=== PATIENT | female | born 1990 | race Caucasian/White ===

== ENCOUNTER 2018-05-28 19:51 | Emergency (ER) | payer SELFPAY ==
[~2018-05-28] VITALS: Ht 154.9 cm; Wt 59.0 kg
[~2018-05-28 19:51] MED LIST: ACEBUTCAFT PO; ALBU90I INH; ALBU90OI INH; ALBU90OI61 INH; ALPR.25 PO; AMIT50 PO; AMOCLA875 PO; AMOX500 PO; AMPI500 PO; ARIP10; ARIP20 PO; AZIT250 PO; Amoxicillin500 MG PO; BENADRYL25 MG PO; BENTYL20 MG PO; BENZ100A PO; BETH10 PO; BUSP15; BUSP15 PO; CARB200 PO; CEFD300 PO; CEFT400 PO; CELE200; CEPH250A PO; CIPR500 PO; CITA20; CITA20 PO; CLIN300 PO; CODACE30 PO; CONEST1.25 PO; CRUTCH4 XX; CYCL10 PO; DICY20 PO; DOCU100 PO; DOXE25; DOXY100 PO; ERYT333ERA PO; ERYT500 PO; ESCI10; ESCI20; ESCI20 PO; ESTR2 PO; FAMO20 PO; FOLI1 PO; Flonase 0.05% N16 GM; GUAPHELA PO; HYDACE5 PO; HYDMOR4 PO; HYDPAM25; HYDPAM25 PO; HYDPAM50; HYOS.125 SL; IBUP200; IBUP600 PO; IBUP800; IBUP800 PO; KETO10 PO; KETO75 PO; LAMO100; LEVO750 PO; LORA.5; LORA1 PO; METPRE4DP PO; METR500 PO; MULVITA PO; MULVITMINE PO; Mobic15 MG PO; Monurol3 GM PO; Mucinex600 MG PO; NAPR375 PO; NAPR500 PO; NAPR550 PO; NIFE60ER PO; NITR100CA PO; Naprosyn500 MG PO; ONDA4 PO; ONDA4ODT MM; ONDA8 PO; OXYACE5T PO; OXYC5 PO; PARO30 PO; PHENY100ER PO; PRAZ1; PRED20 PO; PROACE100 PO; PROM25 PO; PROM6.25SY PO; PROMETHAZINE-D473 ML PO; PSEU120ER PO; Percocet 5-3251 EACH PO; Prednisone20 MG PO; Pyridium200 MG PO; QUET200; QUET25; RANI150; RANI150 PO; RXCYCL10 PO; RXHYDACE PO; RXLORA1 PO; RXNAPNA550 PO; RXONDA4ODT MM; RXPROACE PO; RXSULTRIDS PO; RXTRAM50 PO; SULTRIDS PO; TOPI25; TRAM50 PO; TRAZ100 PO; TRAZ50; TRAZ50 PO; Vistaril25 MG PO; YASMINE; ZALE10; Zofran Odt4 MG SL; Zofran4 MG PO; [UNRECOGNIZED DRUG - OTHER]; [UNRECOGNIZED DRUG - REMARK]; [UNRECOGNIZED DRUG - REMARK]; [UNRECOGNIZED DRUG - REMARK]; [UNRECOGNIZED DRUG - REMARK]
[2018-05-28 20:18] LABS: BASOPHILS ABSOLUTE AUTO 0.06 K/mm3 (0.00-0.23); BASOPHILS PERCENT AUTO 1 % (0-2); EOSINOPHILS ABSOLUTE AUTO 0.09 K/mm3 (0.00-0.68); EOSINOPHILS PERCENT AUTO 1 % (0-6); Hematocrit 42.3 % (33.0-51.0); Hemoglobin 14.9 g/dL (11.5-16.0); IMMATURE GRAN ABSOLUTE AUTO 0.03 K/mm3 (0.00-0.10); IMMATURE GRAN PERCENT AUTO 0 % (0-1); LYMPHOCYTES ABSOLUTE AUTO 2.97 K/mm3 (0.84-5.20); LYMPHOCYTES PERCENT AUTO 31 % (21-46); MONOCYTES ABSOLUTE AUTO 0.88 K/mm3 (0.16-1.47); MONOCYTES PERCENT AUTO 9 % (4-13); Mean Corpuscular HGB 29.6 pg (26.0-34.0); Mean Corpuscular HGB Conc 35.2 g/dL (31.5-36.5); Mean Corpuscular Volume 84 fL (80-100); Mean Platelet Volume 8.8 fL (9.1-12.4); NEUTROPHILS ABSOLUTE AUTO 5.64 K/mm3 (1.96-9.15); NEUTROPHILS PERCENT AUTO 58 % (41-73); Platelet Count 442 K/mm3 (150-400); RDW Standard Deviation 36.1 fL (35.1-46.3); Red Blood Cell Count 5.04 M/mm3 (3.80-5.20); White Blood Cell Count 9.67 K/mm3 (4.00-11.30)
[2018-05-28 20:40] LABS: Alanine Aminotransfer (ALT/SGP 116 U/L (12-78); Albumin, Blood 4.2 g/dL (3.4-5.0); Alk Phos 160 U/L (50-136); Anion Gap 8 mmol/L (6-16); Aspartate Aminotrans (AST/SGOT 63 U/L (12-37); Bilirubin, Total 0.5 mg/dL (0.1-1.0); Blood Urea Nitrogen 7 mg/dL (8-24); Bun/Creatinine Ratio 10.8 (12.0-20.0); CO2, Blood 25 mmol/L (21-32); Calcium, Blood 9.4 mg/dL (8.5-10.1); Chloride, Blood 104 mmol/L (98-108); Creatinine, Blood 0.65 mg/dL (0.40-1.00); Globulin, Blood 4.3 g/dL (2.2-4.0); Glomerular Filtration Rate >60 (60-); Glucose, Blood 101 mg/dL (70-99); Potassium, Blood 3.8 mmol/L (3.5-5.5); Sodium, Blood 137 mmol/L (136-145); Total Protein, Blood 8.5 g/dL (6.4-8.2)
[2018-05-28] MEDS ORDERED: VICODIN 5-3001 EACH PO (21:45)
[2018-05-28] MEDS ORDERED: Prednisone20 MG PO (22:53)
== END 2018-05-28 23:19 | disposition home or self-care (01) ==
LOC: ER 19:51
PROVIDERS: Emergency Medicine
DX: J02.9 Acute pharyngitis, unspecified (principal); Z88.5 Allergy status to narcotic agent; Z91.040 Latex allergy status; Z88.8 Allergy status to other drugs, medicaments and biological substances; Z91.012 Allergy to eggs; Z88.2 Allergy status to sulfonamides; Z88.1 Allergy status to other antibiotic agents; Z79.891 Long term (current) use of opiate analgesic; G40.909 Epilepsy, unspecified, not intractable, without status epilepticus
CPT/HCPCS: 36415; 80053; 85025; 86308; 87081; 87430; 96374; 99283-25; J1885

== ENCOUNTER 2018-09-02 11:39 | Emergency (ER) | payer OTHER ==
[~2018-09-02] VITALS: Ht 154.9 cm; Wt 49.9 kg
[~2018-09-02 11:39] MED LIST changes: +ACET500; +VICODIN 5-3001 EACH PO
[2018-09-02 12:57] LABS: BASOPHILS ABSOLUTE AUTO 0.08 K/mm3 (0.00-0.23); BASOPHILS PERCENT AUTO 1 % (0-2); EOSINOPHILS ABSOLUTE AUTO 0.13 K/mm3 (0.00-0.68); EOSINOPHILS PERCENT AUTO 2 % (0-6); Hematocrit 42.4 % (33.0-51.0); Hemoglobin 13.9 g/dL (11.5-16.0); IMMATURE GRAN ABSOLUTE AUTO 0.02 K/mm3 (0.00-0.10); IMMATURE GRAN PERCENT AUTO 0 % (0-1); LYMPHOCYTES ABSOLUTE AUTO 1.85 K/mm3 (0.84-5.20); LYMPHOCYTES PERCENT AUTO 28 % (21-46); MONOCYTES ABSOLUTE AUTO 0.51 K/mm3 (0.16-1.47); MONOCYTES PERCENT AUTO 8 % (4-13); Mean Corpuscular HGB 29.5 pg (26.0-34.0); Mean Corpuscular HGB Conc 32.8 g/dL (31.5-36.5); Mean Corpuscular Volume 90 fL (80-100); NEUTROPHILS ABSOLUTE AUTO 4.01 K/mm3 (1.96-9.15); NEUTROPHILS PERCENT AUTO 61 % (41-73); RDW Coefficient Variation 12.9 % (11.7-14.2); RDW Standard Deviation 42.4 fL (35.1-46.3); Red Blood Cell Count 4.71 M/mm3 (3.80-5.20)
[2018-09-02 13:00] LABS: Source, Urine Clean Catch
[2018-09-02 13:07] LABS: Mean Platelet Volume 9.5 fL (9.1-12.4); Platelet Count 438 K/mm3 (150-400)
[2018-09-02 13:08] LABS: Bilirubin, Urine Neg (Neg); Blood, Urine Neg (Neg); Glucose Qualitative, Urine Neg (Neg); Ketones, Urine Neg (Neg); Leukocyte Esterase, Urine Neg (Neg); Nitrite, Urine Neg (Neg); Protein, Urine Neg (Neg); Urobilinogen, Urine NORM (Normal)
[2018-09-02 13:23] LABS: Alanine Aminotransfer (ALT/SGP 63 U/L (12-78); Albumin, Blood 3.5 g/dL (3.4-5.0); Albumin/Globulin Ratio 0.9 (0.8-1.8); Alk Phos 154 U/L (50-136); Anion Gap 8 mmol/L (6-16); Aspartate Aminotrans (AST/SGOT 59 U/L (12-37); Bilirubin, Total 0.4 mg/dL (0.1-1.0); Blood Urea Nitrogen 4 mg/dL (8-24); Bun/Creatinine Ratio 6.5 (12.0-20.0); CO2, Blood 27 mmol/L (21-32); Calcium, Blood 8.8 mg/dL (8.5-10.1); Chloride, Blood 109 mmol/L (98-108); Creatinine, Blood 0.61 mg/dL (0.40-1.00); Glomerular Filtration Rate >60 (60-); Glucose, Blood 90 mg/dL (70-99); Sodium, Blood 144 mmol/L (136-145); Total Protein, Blood 7.5 g/dL (6.4-8.2)
[2018-09-02 13:51] LABS: Appearance, Urine Clear (Clear); Color, Urine Yellow (P-Yellow)
== END 2018-09-02 15:54 | disposition home or self-care (01) ==
LOC: ER 11:39
PROVIDERS: Physician Assistant
DX: F15.20 Other stimulant dependence, uncomplicated (principal); G40.909 Epilepsy, unspecified, not intractable, without status epilepticus; Z90.710 Acquired absence of both cervix and uterus; Z98.890 Other specified postprocedural states; Z88.5 Allergy status to narcotic agent; Z88.1 Allergy status to other antibiotic agents; Z88.8 Allergy status to other drugs, medicaments and biological substances; Z91.040 Latex allergy status; Z91.012 Allergy to eggs
CPT/HCPCS: 36415; 80053; 81003; 85025; 99283

== ENCOUNTER 2018-09-16 11:39 | Emergency (ER) | payer OTHER ==
[~2018-09-16] VITALS: Ht 154.9 cm; Wt 44.5 kg
[2018-09-16 12:26] LABS: BASOPHILS ABSOLUTE AUTO 0.09 K/mm3 (0.00-0.23); BASOPHILS PERCENT AUTO 1 % (0-2); EOSINOPHILS ABSOLUTE AUTO 0.15 K/mm3 (0.00-0.68); EOSINOPHILS PERCENT AUTO 2 % (0-6); Hematocrit 44.9 % (33.0-51.0); Hemoglobin 14.5 g/dL (11.5-16.0); IMMATURE GRAN ABSOLUTE AUTO 0.03 K/mm3 (0.00-0.10); IMMATURE GRAN PERCENT AUTO 0 % (0-1); LYMPHOCYTES ABSOLUTE AUTO 2.48 K/mm3 (0.84-5.20); LYMPHOCYTES PERCENT AUTO 35 % (21-46); MONOCYTES ABSOLUTE AUTO 0.42 K/mm3 (0.16-1.47); MONOCYTES PERCENT AUTO 6 % (4-13); Mean Corpuscular HGB 29.2 pg (26.0-34.0); Mean Corpuscular HGB Conc 32.3 g/dL (31.5-36.5); Mean Corpuscular Volume 90 fL (80-100); NEUTROPHILS ABSOLUTE AUTO 4.02 K/mm3 (1.96-9.15); NEUTROPHILS PERCENT AUTO 56 % (41-73); Platelet Count 432 K/mm3 (150-400); RDW Coefficient Variation 12.7 % (11.7-14.2); RDW Standard Deviation 41.9 fL (35.1-46.3); Red Blood Cell Count 4.97 M/mm3 (3.80-5.20); White Blood Cell Count 7.19 K/mm3 (4.00-11.30)
[2018-09-16 12:43] LABS: Alanine Aminotransfer (ALT/SGP 52 U/L (12-78); Albumin, Blood 3.6 g/dL (3.4-5.0); Albumin/Globulin Ratio 0.9 (0.8-1.8); Alk Phos 154 U/L (50-136); Anion Gap 6 mmol/L (6-16); Aspartate Aminotrans (AST/SGOT 33 U/L (12-37); Bilirubin, Total 0.2 mg/dL (0.1-1.0); Blood Urea Nitrogen 13 mg/dL (8-24); Bun/Creatinine Ratio 18.8 (12.0-20.0); CO2, Blood 27 mmol/L (21-32); Chloride, Blood 110 mmol/L (98-108); Creatinine, Blood 0.69 mg/dL (0.40-1.00); Glomerular Filtration Rate >60 (60-); Glucose, Blood 90 mg/dL (70-99); Potassium, Blood 3.9 mmol/L (3.5-5.5); Sodium, Blood 143 mmol/L (136-145); Total Protein, Blood 7.6 g/dL (6.4-8.2)
[2018-09-16 13:01] LABS: Source, Urine Clean Catch
[2018-09-16 13:07] LABS: Bilirubin, Urine Neg (Neg); Blood, Urine Neg (Neg); Glucose Qualitative, Urine Neg (Neg); Ketones, Urine Neg (Neg); Leukocyte Esterase, Urine 1+ (Neg); Nitrite, Urine Neg (Neg); Protein, Urine Neg (Neg); Urobilinogen, Urine NORM (Normal); pH, Urine 6.5 (5.0-8.0)
[2018-09-16 13:19] LABS: Appearance, Urine Hazy (Clear); Bacteria Few /hpf; Color, Urine Yellow (P-Yellow); Red Blood Cells, Urine 0-2 /hpf (0-2); Squamous Epithelial Cells Mod /hpf (Few)
== END 2018-09-16 14:18 | disposition home or self-care (01) ==
LOC: ER 11:39
PROVIDERS: Emergency Medicine
DX: R53.1 Weakness (principal); Z88.5 Allergy status to narcotic agent; Z91.040 Latex allergy status; Z91.012 Allergy to eggs; Z88.1 Allergy status to other antibiotic agents; Z88.2 Allergy status to sulfonamides; Z88.8 Allergy status to other drugs, medicaments and biological substances
CPT/HCPCS: 36415; 71046; 80053; 81001; 83605; 83690; 85025; 85651; 87040; 87086; 93005; 93010; 99284-25

== ENCOUNTER 2018-11-26 22:30 | Observation (INO) | payer OTHER ==
[~2018-11-26] VITALS: Ht 152.4 cm; Wt 50.8 kg
[2018-11-27 01:01] LABS: Source, Urine Clean Catch
[2018-11-27 01:05] LABS: Bilirubin, Urine Neg (Neg); Blood, Urine Neg (Neg); Glucose Qualitative, Urine Neg (Neg); Ketones, Urine Neg (Neg); Leukocyte Esterase, Urine 1+ (Neg); Nitrite, Urine Neg (Neg); Protein, Urine 1+ (Neg); Urobilinogen, Urine NORM (Normal)
[2018-11-27 01:11] LABS: Appearance, Urine Clear (Clear); Color, Urine Yellow (P-Yellow)
[2018-11-27 01:12] LABS: Bacteria Mod /hpf; Red Blood Cells, Urine 0-2 /hpf (0-2); Squamous Epithelial Cells Few /hpf (Few)
[2018-11-27 01:15] LABS: U Amphetamine Screen Not Detected; U Barbituate Screen Not Detected; U Benzodiazapine Screen Not Detected; U Buprenorphine Screen Not Detected; U Cannabinoids Screen DETECTED; U Cocaine Screen Not Detected; U Methadone Screen Not Detected; U Methamphetamine Screen Not Detected; U Opiates Screen Not Detected; U Oxycodone Screen Not Detected; U Phencyclidine Screen Not Detected; U Propoxyphene Screen Not Detected
[2018-11-27 01:34] LABS: BASOPHILS ABSOLUTE AUTO 0.08 K/mm3 (0.00-0.23); BASOPHILS PERCENT AUTO 1 % (0-2); EOSINOPHILS ABSOLUTE AUTO 0.06 K/mm3 (0.00-0.68); EOSINOPHILS PERCENT AUTO 1 % (0-6); Hematocrit 46.2 % (33.0-51.0); Hemoglobin 15.6 g/dL (11.5-16.0); IMMATURE GRAN ABSOLUTE AUTO 0.02 K/mm3 (0.00-0.10); IMMATURE GRAN PERCENT AUTO 0 % (0-1); LYMPHOCYTES ABSOLUTE AUTO 3.21 K/mm3 (0.84-5.20); LYMPHOCYTES PERCENT AUTO 33 % (21-46); MONOCYTES PERCENT AUTO 5 % (4-13); Mean Corpuscular HGB 30.4 pg (26.0-34.0); Mean Corpuscular HGB Conc 33.8 g/dL (31.5-36.5); Mean Corpuscular Volume 90 fL (80-100); Mean Platelet Volume 9.1 fL (9.1-12.4); NEUTROPHILS PERCENT AUTO 60 % (41-73); Platelet Count 462 K/mm3 (150-400); RDW Coefficient Variation 11.8 % (11.7-14.2); RDW Standard Deviation 38.7 fL (35.1-46.3); Red Blood Cell Count 5.13 M/mm3 (3.80-5.20); White Blood Cell Count 9.67 K/mm3 (4.00-11.30)
[2018-11-27 01:57] LABS: Alanine Aminotransfer (ALT/SGP 45 U/L (12-78); Albumin, Blood 4.1 g/dL (3.4-5.0); Albumin/Globulin Ratio 1.1 (0.8-1.8); Alk Phos 129 U/L (50-136); Anion Gap 8 mmol/L (6-16); Aspartate Aminotrans (AST/SGOT 36 U/L (12-37); Bilirubin, Total 0.5 mg/dL (0.1-1.0); Blood Urea Nitrogen 16 mg/dL (8-24); CO2, Blood 24 mmol/L (21-32); Calcium, Blood 9.1 mg/dL (8.5-10.1); Chloride, Blood 108 mmol/L (98-108); Creatinine, Blood 0.73 mg/dL (0.40-1.00); Globulin, Blood 3.9 g/dL (2.2-4.0); Glomerular Filtration Rate >60 (60-); Glucose, Blood 116 mg/dL (70-99); Potassium, Blood 3.6 mmol/L (3.5-5.5); Salicylate <1.7 mg/dL (2.8-20.0); Sodium, Blood 140 mmol/L (136-145)
[2018-11-27 02:01] LABS: Thyroid Stimulating Hormone 0.747 uIU/mL (0.360-4.800)
[2018-11-27 02:04] LABS: Acetaminophen, Random <2.0 ug/mL (10.0-30.0); Ethanol (Alcohol), Blood, Med <3 mg/dL
[2018-11-27 06:14] LABS: LDL/HDL RATIO 2.5; Very Low Density Lipoprot Chol 34 mg/dL (6-28)
[2018-11-27 06:15] LABS: CHOL/HDL RATIO 4.1; Cholesterol 207 mg/dL (50-200); HDL Cholesterol 50 mg/dL (>39); Low Density Lipoprotein Chol 123 mg/dL (0-110); Triglycerides 172 mg/dL (30-140)
--- NOTE | 2018-11-27 08:11 | NUR ---
echocardiogram completed
== END 2018-11-28 15:53 | disposition home or self-care (01) ==
LOC: ER 22:30 → ERHOLD 22:31
PROVIDERS: Emergency Medicine; ADMIT Internal Medicine
DX: H54.62 Unqualified visual loss, left eye, normal vision right eye (principal); R29.898 Other symptoms and signs involving the musculoskeletal system; R20.0 Anesthesia of skin; N39.0 Urinary tract infection, site not specified; G40.909 Epilepsy, unspecified, not intractable, without status epilepticus; C95.90 Leukemia, unspecified not having achieved remission; F43.10 Post-traumatic stress disorder, unspecified; Z88.8 Allergy status to other drugs, medicaments and biological substances; Z88.1 Allergy status to other antibiotic agents; Z91.018 Allergy to other foods; Z88.2 Allergy status to sulfonamides; Z91.040 Latex allergy status; Z91.5 Personal history of self-harm
CPT/HCPCS: 36415; 70450; 70496; 70551; 80053; 80061; 81001; 81025; 84443; 85025; 87086; 90686; 93306; 93880; 96361-59; 96365-59; 96372-59; 99285-25; G0378; G0480; J0696; J1650; J7030; Q9967

== ENCOUNTER 2018-12-13 16:25 | Emergency (ER) | payer OTHER ==
[~2018-12-13] VITALS: Ht 152.4 cm; Wt 54.4 kg
[2018-12-13] MEDS ORDERED: GABA300 PO (17:29)
[2018-12-13 18:27] LABS: BASOPHILS ABSOLUTE AUTO 0.06 K/mm3 (0.00-0.23); BASOPHILS PERCENT AUTO 1 % (0-2); EOSINOPHILS ABSOLUTE AUTO 0.12 K/mm3 (0.00-0.68); EOSINOPHILS PERCENT AUTO 2 % (0-6); Hematocrit 41.8 % (33.0-51.0); IMMATURE GRAN ABSOLUTE AUTO 0.02 K/mm3 (0.00-0.10); IMMATURE GRAN PERCENT AUTO 0 % (0-1); LYMPHOCYTES ABSOLUTE AUTO 3.36 K/mm3 (0.84-5.20); LYMPHOCYTES PERCENT AUTO 41 % (21-46); MONOCYTES ABSOLUTE AUTO 0.65 K/mm3 (0.16-1.47); MONOCYTES PERCENT AUTO 8 % (4-13); Mean Corpuscular HGB 30.3 pg (26.0-34.0); Mean Corpuscular HGB Conc 33.5 g/dL (31.5-36.5); Mean Corpuscular Volume 91 fL (80-100); Mean Platelet Volume 9.3 fL (9.1-12.4); NEUTROPHILS ABSOLUTE AUTO 3.98 K/mm3 (1.96-9.15); NEUTROPHILS PERCENT AUTO 49 % (41-73); Platelet Count 419 K/mm3 (150-400); RDW Coefficient Variation 11.9 % (11.7-14.2); RDW Standard Deviation 39.2 fL (35.1-46.3); Red Blood Cell Count 4.62 M/mm3 (3.80-5.20); White Blood Cell Count 8.19 K/mm3 (4.00-11.30)
[2018-12-13 18:52] LABS: Alanine Aminotransfer (ALT/SGP 47 U/L (12-78); Albumin, Blood 3.9 g/dL (3.4-5.0); Alk Phos 137 U/L (50-136); Anion Gap 5 mmol/L (6-16); Aspartate Aminotrans (AST/SGOT 30 U/L (12-37); Bilirubin, Total 0.3 mg/dL (0.1-1.0); Blood Urea Nitrogen 17 mg/dL (8-24); Bun/Creatinine Ratio 19.7 (12.0-20.0); CO2, Blood 27 mmol/L (21-32); Chloride, Blood 105 mmol/L (98-108); Creatinine, Blood 0.86 mg/dL (0.40-1.00); Globulin, Blood 3.8 g/dL (2.2-4.0); Glomerular Filtration Rate >60 (60-); Glucose, Blood 91 mg/dL (70-99); Sodium, Blood 137 mmol/L (136-145); Total Protein, Blood 7.7 g/dL (6.4-8.2)
== END 2018-12-13 18:38 | disposition short-term general hospital (02) ==
LOC: ER 16:25
PROVIDERS: Physician Assistant
DX: M54.6 Pain in thoracic spine (principal); G40.909 Epilepsy, unspecified, not intractable, without status epilepticus; Z87.891 Personal history of nicotine dependence; Z88.5 Allergy status to narcotic agent; Z88.2 Allergy status to sulfonamides
CPT/HCPCS: 80053; 85025; 99284

== ENCOUNTER → 2019-05-16 | Outpatient (CLI) | payer OTHER ==
[~2019-05-16] MED LIST changes: +GABA300 PO
[2019-05-17 10:47] LABS: Candida species (DNA Probe) Negative (NEGATIVE); G. vaginalis (DNA Probe) Positive (NEGATIVE); T. vaginalis (DNA Probe) Negative (NEGATIVE)
== END ==
LOC: LAB 19:59 → LAB SHORT 19:59
PROVIDERS: Registered Nurse Community Health
DX: N89.8 Other specified noninflammatory disorders of vagina (principal)
CPT/HCPCS: 87070; 87205; 87480; 87510; 87660

== ENCOUNTER → 2020-08-06 | Outpatient (CLI) | payer OTHER ==
[~2020-08-06] MED LIST changes: +BUPR150ER PO; +CLON.5 PO; +ESTEST.62T PO; +HYDR1TAB94 PO; +IBUP400 PO; +LAMO25 PO; +PRAZ1 PO; +PREG75; +QUET100 PO; +QUET25 PO; +TIZANIDINE HCL2 MG PO; +VENL37.5 PO
[2020-08-08 12:13] LABS: Stool Occult Bld Immuno 1 Positive (NEGATIVE)
== END | disposition home or self-care (01) ==
LOC: OLS 21:00 → LAB SHORT 21:00 → LAB 21:00 → LAB SHORT 08-07 12:54
PROVIDERS: Nurse Practitioner Family
DX: K62.5 Hemorrhage of anus and rectum (principal)
CPT/HCPCS: G0328

== ENCOUNTER 2020-08-31 14:53 | Emergency (ER) | payer OTHER ==
[~2020-08-31] VITALS: Ht 152.4 cm; Wt 59.0 kg
[~2020-08-31 14:53] MED LIST changes: -CLON.5 PO; -ESTEST.62T PO; -HYDR1TAB94 PO; -IBUP400 PO; -LAMO25 PO; -PRAZ1 PO; -PREG75; -QUET100 PO
[2020-08-31] MEDS ORDERED: PRAZ1 PO (17:53)
[2020-08-31] MEDS ORDERED: QUET100 PO (17:53)
[2020-08-31] MEDS ORDERED: LAMO25 PO (17:54)
[2020-08-31] MEDS ORDERED: CLON.5 PO (17:54)
[2020-08-31] MEDS ORDERED: ESTEST.62T PO (17:56)
[2020-08-31] MEDS ORDERED: PREG75 (17:57)
[2020-08-31 18:26] LABS: BASOPHILS ABSOLUTE AUTO 0.07 K/mm3 (0.00-0.23); BASOPHILS PERCENT AUTO 1 % (0-2); EOSINOPHILS ABSOLUTE AUTO 0.09 K/mm3 (0.00-0.68); EOSINOPHILS PERCENT AUTO 1 % (0-6); Hematocrit 42.8 % (33.0-51.0); Hemoglobin 14.3 g/dL (11.5-16.0); IMMATURE GRAN ABSOLUTE AUTO 0.01 K/mm3 (0.00-0.10); IMMATURE GRAN PERCENT AUTO 0 % (0-1); LYMPHOCYTES ABSOLUTE AUTO 2.62 K/mm3 (0.84-5.20); LYMPHOCYTES PERCENT AUTO 32 % (21-46); MONOCYTES ABSOLUTE AUTO 0.44 K/mm3 (0.16-1.47); MONOCYTES PERCENT AUTO 5 % (4-13); Mean Corpuscular HGB Conc 33.4 g/dL (31.5-36.5); Mean Corpuscular Volume 87 fL (80-100); Mean Platelet Volume 9.5 fL (9.1-12.4); NEUTROPHILS ABSOLUTE AUTO 4.85 K/mm3 (1.96-9.15); NEUTROPHILS PERCENT AUTO 60 % (41-73); Platelet Count 378 K/mm3 (150-400); RDW Coefficient Variation 11.9 % (11.7-14.2); RDW Standard Deviation 37.6 fL (35.1-46.3); Red Blood Cell Count 4.93 M/mm3 (3.80-5.20); White Blood Cell Count 8.08 K/mm3 (4.00-11.30)
[2020-08-31 18:50] LABS: Alanine Aminotransfer (ALT/SGP 15 U/L (12-78); Albumin, Blood 3.9 g/dL (3.4-5.0); Albumin/Globulin Ratio 1.1 (0.8-1.8); Alk Phos 119 U/L (50-136); Anion Gap 8 mmol/L (6-16); Aspartate Aminotrans (AST/SGOT 16 U/L (12-37); Bilirubin, Total 0.4 mg/dL (0.1-1.0); Blood Urea Nitrogen 9 mg/dL (8-24); Bun/Creatinine Ratio 10.9 (12.0-20.0); CO2, Blood 23 mmol/L (21-32); Calcium, Blood 9.3 mg/dL (8.5-10.1); Chloride, Blood 109 mmol/L (98-108); Creatinine, Blood 0.83 mg/dL (0.40-1.00); Globulin, Blood 3.5 g/dL (2.2-4.0); Glomerular Filtration Rate >60 (60-); Glucose, Blood 89 mg/dL (70-99); Potassium, Blood 3.8 mmol/L (3.5-5.5); Sodium, Blood 140 mmol/L (136-145); Total Protein, Blood 7.4 g/dL (6.4-8.2); Troponin I <0.015 ng/mL (0.000-0.040)
[2020-08-31] MEDS ORDERED: HYDR1TAB94 PO (19:13)
[2020-08-31] MEDS ORDERED: IBUP400 PO (19:13)
== END 2020-08-31 19:26 | disposition home or self-care (01) ==
LOC: ER 14:53
PROVIDERS: Emergency Medicine
DX: R07.9 Chest pain, unspecified (principal); G40.909 Epilepsy, unspecified, not intractable, without status epilepticus; Z79.899 Other long term (current) drug therapy; Z79.3 Long term (current) use of hormonal contraceptives; Z88.5 Allergy status to narcotic agent; Z91.040 Latex allergy status; Z88.1 Allergy status to other antibiotic agents; Z91.012 Allergy to eggs; Z88.0 Allergy status to penicillin; Z88.2 Allergy status to sulfonamides; Z88.4 Allergy status to anesthetic agent; Z88.8 Allergy status to other drugs, medicaments and biological substances; Z86.73 Personal history of transient ischemic attack (TIA), and cerebral infarction without residual deficits; Z87.891 Personal history of nicotine dependence
CPT/HCPCS: 36415; 71046; 80053; 84484; 85025; 85379; 93005; 93010; 96374; 96375; 99284-25; J1170; J1885; J2405

== ENCOUNTER 2020-09-22 16:09 | Emergency (ER) | payer OTHER ==
[~2020-09-22] VITALS: Ht 162.6 cm; Wt 54.4 kg
[~2020-09-22 16:09] MED LIST changes: +ESTEST.62T PO; +HYDR1TAB94 PO; +IBUP400 PO; -TIZANIDINE HCL2 MG PO
[2020-09-22] MEDS ORDERED: ALBU90OI INH (20:18)
[2020-09-22] MEDS ORDERED: Amoxicillin500 M1 PO (20:18)
== END 2020-09-22 20:27 | disposition home or self-care (01) ==
LOC: ER 16:09
DX: J18.9 Pneumonia, unspecified organism (principal); Z79.3 Long term (current) use of hormonal contraceptives; Z79.899 Other long term (current) drug therapy; Z20.822 Contact with and (suspected) exposure to COVID-19
CPT/HCPCS: 71045; 99285-25

== ENCOUNTER 2020-11-02 11:25 | Day surgery (SDC) | payer OTHER ==
[~2020-11-02] VITALS: Ht 152.4 cm; Wt 59.2 kg
[~2020-11-02 11:25] MED LIST changes: +Amoxicillin500 M1 PO
== END 2020-11-02 13:10 | disposition home or self-care (01) ==
LOC: ORSCSDS 11:25
PROVIDERS: Internal Medicine Gastroenterology
PROC: 0DJD8ZZ Inspection of Lower Intestinal Tract, Via Natural or Artificial Opening Endoscopic (ICD-10-PCS; principal; 2020-11-02 12:45)
DX: K62.5 Hemorrhage of anus and rectum (principal); K64.2 Third degree hemorrhoids; Z86.19 Personal history of other infectious and parasitic diseases; Z79.899 Other long term (current) drug therapy
CPT/HCPCS: J2704; J7120

== ENCOUNTER 2020-12-29 06:17 | Day surgery (SDC) | payer OTHER ==
[~2020-12-29] VITALS: Ht 152.4 cm; Wt 59.2 kg
[~2020-12-29 06:17] MED LIST changes: +CLIMARA1 EACH; +CLON.5 PO; +LAMO25 PO; +PRAZ1 PO; +PREG75; +QUET100 PO; +TIZANIDINE HCL2 MG PO
--- NOTE | 2020-12-29 07:38 | NUR ---
12/29/20 0738 Beth Terry A HEALING "ABSCESS" TO RIGHT AC. PATIENT STATED SHE IS BEING TREATED WITH ANTIBIOTICS FROM ANOTHER DR. SURGEON AWARE.
--- NOTE | 2020-12-29 08:50 | NUR ---
12/29/20 0850 Kenya Ruiz PT TO SDU AFTER SURGERY. PT SLEEPING, VSS. WHEN AWAKENED, PT BECAME TEARFUL IMMEDIATELY. C/O PAIN TO LEFT WRIST. PT UP TO RECLINER WITH SBA. IV FENTANYL GIVEN IN INCREMENTS PER DR. ZALDIVAR'S ORDERS. PT ATE SOME COOKIES, TRAMADOL PILL ORDERED BY DR PENNY OFFERED TO PT. PT STATES SHE IS ALLERGIC TO TRAMADOL WITH AN ANAPHYLAXIS REACTION. ALLERGY NOT LISTED ON CHART. TRAMADOL PILL NOT GIVEN. DR. PENNY NOTIFIED, ORDERS FOR TYLENOL AND IBUPROFEN OVER THE COUNTER PER BOTTLE INSTRUCTIONS. PT TELLS SUDEEP TORREZ THAT HER REACTION TO TRAMADOL IS NOT ANAPHYLAXIS, BUT IS A RASH. DR. PENNY NOTIFIED, STATES IF RN BELIEVES THAT THE REACTION IS NOT TRULY AN ANAPHYLAXIS REACTION, THEN OK TO SEND PRESCRIPTION HOME WITH PT. THIS RN ASKED THE PT WHY SHE STATED THAT SHE HAD AN ANAPHYLAXIS REACTION TO TRAMADOL, PT STATES "BECAUSE TRAMADOL DOESN'T WORK FOR MY PAIN. JUST GIVE ME THE TRAMADOL. I CAN'T TAKE TYLENOL OR IBUPROFEN." PT OFFERED 1000 MG TYLENOL, PT REFUSES TYLENOL. DISCHARGE INSTRUCTIONS REVIEWED WITH PT. PT SENT HOME WITH TRAMADOL PRESCRIPTION.
== END 2020-12-29 08:39 | disposition home or self-care (01) ==
LOC: ORSCSDS 06:17
PROVIDERS: Orthopaedic Surgery
PROC: 01N50ZZ Release Median Nerve, Open Approach (ICD-10-PCS; principal; 2020-12-29 07:30)
DX: G56.02 Carpal tunnel syndrome, left upper limb (principal); F41.9 Anxiety disorder, unspecified; C95.90 Leukemia, unspecified not having achieved remission; G40.909 Epilepsy, unspecified, not intractable, without status epilepticus; Z79.899 Other long term (current) drug therapy
CPT/HCPCS: A9270; J2250; J2704; J3010; J7120

== ENCOUNTER 2021-01-25 17:39 | Inpatient (IN) | payer OTHER ==
[~2021-01-25] VITALS: Ht 152.4 cm; Wt 59.0 kg
[~2021-01-25 17:39] MED LIST changes: -CLIMARA1 EACH; -CLON.5 PO; -LAMO25 PO; -PRAZ1 PO; -PREG75; -QUET100 PO; -TIZANIDINE HCL2 MG PO
[2021-01-25 18:52] LABS: BASOPHILS ABSOLUTE AUTO 0.09 K/mm3 (0.00-0.23); BASOPHILS PERCENT AUTO 1 % (0-2); EOSINOPHILS ABSOLUTE AUTO 0.23 K/mm3 (0.00-0.68); EOSINOPHILS PERCENT AUTO 2 % (0-6); Hemoglobin 12.6 g/dL (11.5-16.0); IMMATURE GRAN ABSOLUTE AUTO 0.06 K/mm3 (0.00-0.10); IMMATURE GRAN PERCENT AUTO 0 % (0-1); LYMPHOCYTES ABSOLUTE AUTO 2.13 K/mm3 (0.84-5.20); LYMPHOCYTES PERCENT AUTO 14 % (21-46); MONOCYTES ABSOLUTE AUTO 0.95 K/mm3 (0.16-1.47); MONOCYTES PERCENT AUTO 6 % (4-13); Mean Corpuscular HGB 25.8 pg (26.0-34.0); Mean Corpuscular HGB Conc 32.3 g/dL (31.5-36.5); Mean Corpuscular Volume 80 fL (80-100); Mean Platelet Volume 8.6 fL (9.1-12.4); NEUTROPHILS ABSOLUTE AUTO 11.85 K/mm3 (1.96-9.15); NEUTROPHILS PERCENT AUTO 77 % (41-73); Platelet Count 520 K/mm3 (150-400); RDW Coefficient Variation 13.2 % (11.7-14.2); RDW Standard Deviation 38.2 fL (35.1-46.3); Red Blood Cell Count 4.88 M/mm3 (3.80-5.20); White Blood Cell Count 15.31 K/mm3 (4.00-11.30)
[2021-01-25] MEDS ORDERED: PRAZ1 PO (19:49)
[2021-01-25] MEDS ORDERED: CLON.5 PO (19:50)
[2021-01-25] MEDS ORDERED: QUET100 PO (19:50)
[2021-01-25 19:51] LABS: Alanine Aminotransfer (ALT/SGP 17 U/L (12-78); Albumin, Blood 3.8 g/dL (3.4-5.0); Alk Phos 191 U/L (50-136); Anion Gap 8 mmol/L (6-16); Aspartate Aminotrans (AST/SGOT 15 U/L (12-37); Bilirubin, Total 0.8 mg/dL (0.1-1.0); Blood Urea Nitrogen 10 mg/dL (8-24); Bun/Creatinine Ratio 13.3 (12.0-20.0); CO2, Blood 25 mmol/L (21-32); Calcium, Blood 9.2 mg/dL (8.5-10.1); Chloride, Blood 105 mmol/L (98-108); Creatinine, Blood 0.75 mg/dL (0.40-1.00); Globulin, Blood 3.9 g/dL (2.2-4.0); Glomerular Filtration Rate >60 (60-); Glucose, Blood 89 mg/dL (70-99); Potassium, Blood 3.9 mmol/L (3.5-5.5); Sodium, Blood 138 mmol/L (136-145); Total Protein, Blood 7.7 g/dL (6.4-8.2)
[2021-01-25] MEDS ORDERED: LAMO25 PO (19:51)
[2021-01-25] MEDS ORDERED: PREGABALIN100 MG PO (19:51)
[2021-01-25] MEDS ORDERED: LAMICTAL25 M1 PO (19:57)
[2021-01-25] MEDS ORDERED: TIZANIDINE HCL2 MG PO (19:58)
[2021-01-25] MEDS ORDERED: ESTRADIOL0.5 MG PO (19:58)
[2021-01-25] MEDS ORDERED: cancer med PO (19:59)
[2021-01-26 04:54] LABS: BASOPHILS ABSOLUTE AUTO 0.08 K/mm3 (0.00-0.23); BASOPHILS PERCENT AUTO 1 % (0-2); EOSINOPHILS ABSOLUTE AUTO 0.07 K/mm3 (0.00-0.68); EOSINOPHILS PERCENT AUTO 1 % (0-6); Hematocrit 39.2 % (33.0-51.0); Hemoglobin 12.4 g/dL (11.5-16.0); IMMATURE GRAN ABSOLUTE AUTO 0.04 K/mm3 (0.00-0.10); IMMATURE GRAN PERCENT AUTO 0 % (0-1); LYMPHOCYTES ABSOLUTE AUTO 1.52 K/mm3 (0.84-5.20); LYMPHOCYTES PERCENT AUTO 15 % (21-46); MONOCYTES ABSOLUTE AUTO 0.23 K/mm3 (0.16-1.47); MONOCYTES PERCENT AUTO 2 % (4-13); Mean Corpuscular HGB Conc 31.6 g/dL (31.5-36.5); Mean Corpuscular Volume 82 fL (80-100); Mean Platelet Volume 8.9 fL (9.1-12.4); NEUTROPHILS ABSOLUTE AUTO 8.55 K/mm3 (1.96-9.15); NEUTROPHILS PERCENT AUTO 81 % (41-73); Platelet Count 514 K/mm3 (150-400); RDW Coefficient Variation 13.2 % (11.7-14.2); Red Blood Cell Count 4.77 M/mm3 (3.80-5.20); White Blood Cell Count 10.49 K/mm3 (4.00-11.30)
--- NOTE | 2021-01-26 05:01 | NUR ---
SHIFT SUMMARY: PT ADMITTED TO SURGICAL FLOOR FROM ER TONIGHT. L HAND CELLULITIS-PHOTOS IN CHART. L HAND SWOLLEN AND RED IN PATCHES. PAIN MANAGED W/ FENTANYL AND ELEVATION. IV FLUIDS AND ABT PER ORDERS. PT INDEPENDENT IN ROOM. REPORTS FEELING S/S OF WITHDRAWAL- FEELING HOT/COLD, DIAPHORETIC, FIDGETY. SLEEPING AT THIS TIME. WCTM.
[2021-01-26 05:26] LABS: Alanine Aminotransfer (ALT/SGP 16 U/L (12-78); Albumin, Blood 3.2 g/dL (3.4-5.0); Albumin/Globulin Ratio 0.8 (0.8-1.8); Alk Phos 174 U/L (50-136); Anion Gap 3 mmol/L (6-16); Aspartate Aminotrans (AST/SGOT 10 U/L (12-37); Bilirubin, Total 0.3 mg/dL (0.1-1.0); Blood Urea Nitrogen 14 mg/dL (8-24); Bun/Creatinine Ratio 17.9 (12.0-20.0); CO2, Blood 30 mmol/L (21-32); Calcium, Blood 8.7 mg/dL (8.5-10.1); Chloride, Blood 104 mmol/L (98-108); Creatinine, Blood 0.78 mg/dL (0.40-1.00); Globulin, Blood 3.9 g/dL (2.2-4.0); Glomerular Filtration Rate >60 (60-); Glucose, Blood 117 mg/dL (70-99); Potassium, Blood 3.8 mmol/L (3.5-5.5); Sodium, Blood 137 mmol/L (136-145); Total Protein, Blood 7.1 g/dL (6.4-8.2)
[2021-01-26 10:27] LABS: Vancomycin, Trough 14.8 ug/mL (5.0-10.0)
--- NOTE | 2021-01-26 12:06 | NUR ---
PT REQUESTING TO LEAVE AMA PT LEFT AMA AT THIS TIME. EDUCATED ON THE RISKS OF LEAVING AND BENEFITS OF STAYING. PT VERBALIZES UNDERSTANDING. STATES THAT DRUG WITHDRAWAL IS TOO BAD TO STAY. DR. HERNANDEZ NOTIFIED AND WROTE A PRESCRIPTION FOR AUGMENTIN.
== END 2021-01-26 12:20 | disposition home or self-care (01) | DRG 603 ==
LOC: ER 17:39 → ERHOLD 20:06 → SURS 21:09
PROVIDERS: Emergency Medicine; ADMIT Internal Medicine
DX: L03.114 Cellulitis of left upper limb (principal); L02.512 Cutaneous abscess of left hand; C95.10 Chronic leukemia of unspecified cell type not having achieved remission; T40.1X1A Poisoning by heroin, accidental (unintentional), initial encounter; F43.10 Post-traumatic stress disorder, unspecified; G40.909 Epilepsy, unspecified, not intractable, without status epilepticus; Z79.899 Other long term (current) drug therapy; Z88.0 Allergy status to penicillin; Z88.8 Allergy status to other drugs, medicaments and biological substances; Z86.73 Personal history of transient ischemic attack (TIA), and cerebral infarction without residual deficits; Z85.41 Personal history of malignant neoplasm of cervix uteri; Z98.890 Other specified postprocedural states; Z90.711 Acquired absence of uterus with remaining cervical stump; Z87.891 Personal history of nicotine dependence; Z88.5 Allergy status to narcotic agent; Z91.040 Latex allergy status; Z88.1 Allergy status to other antibiotic agents; Z91.012 Allergy to eggs
CPT/HCPCS: 36415; 71045; 73130; 80053; 80202; 83605; 85025; 87040; 93306; 96365; 99285-25; A9270; J0295; J0696; J1650; J1885; J2930; J3010; J3370; J7030

== ENCOUNTER 2021-01-27 19:47 | Emergency (ER) | payer OTHER ==
[~2021-01-27] VITALS: Ht 152.4 cm; Wt 54.4 kg
[~2021-01-27 19:47] MED LIST changes: +CLON.5 PO; +ESTRADIOL0.5 MG PO; +LAMICTAL25 M1 PO; +LAMO25 PO; +PRAZ1 PO; +PREGABALIN100 MG PO; +QUET100 PO; +TIZANIDINE HCL2 MG PO; +cancer med PO
[2021-01-27 23:00] LABS: BASOPHILS PERCENT AUTO 1 % (0-2); EOSINOPHILS ABSOLUTE AUTO 0.16 K/mm3 (0.00-0.68); EOSINOPHILS PERCENT AUTO 2 % (0-6); Hematocrit 39.6 % (33.0-51.0); IMMATURE GRAN ABSOLUTE AUTO 0.02 K/mm3 (0.00-0.10); IMMATURE GRAN PERCENT AUTO 0 % (0-1); LYMPHOCYTES ABSOLUTE AUTO 3.25 K/mm3 (0.84-5.20); LYMPHOCYTES PERCENT AUTO 32 % (21-46); MONOCYTES PERCENT AUTO 7 % (4-13); Mean Corpuscular HGB 26.4 pg (26.0-34.0); Mean Corpuscular HGB Conc 32.8 g/dL (31.5-36.5); Mean Corpuscular Volume 80 fL (80-100); Mean Platelet Volume 8.6 fL (9.1-12.4); NEUTROPHILS ABSOLUTE AUTO 6.09 K/mm3 (1.96-9.15); NEUTROPHILS PERCENT AUTO 59 % (41-73); Platelet Count 543 K/mm3 (150-400); RDW Coefficient Variation 13.2 % (11.7-14.2); RDW Standard Deviation 38.5 fL (35.1-46.3); Red Blood Cell Count 4.93 M/mm3 (3.80-5.20); White Blood Cell Count 10.32 K/mm3 (4.00-11.30)
[2021-01-27 23:18] LABS: Alanine Aminotransfer (ALT/SGP 16 U/L (12-78); Albumin, Blood 3.5 g/dL (3.4-5.0); Albumin/Globulin Ratio 0.9 (0.8-1.8); Alk Phos 158 U/L (50-136); Anion Gap 4 mmol/L (6-16); Aspartate Aminotrans (AST/SGOT 10 U/L (12-37); Bilirubin, Total 0.4 mg/dL (0.1-1.0); Blood Urea Nitrogen 10 mg/dL (8-24); Bun/Creatinine Ratio 15.4 (12.0-20.0); CO2, Blood 27 mmol/L (21-32); Calcium, Blood 8.8 mg/dL (8.5-10.1); Chloride, Blood 106 mmol/L (98-108); Creatinine, Blood 0.65 mg/dL (0.40-1.00); Globulin, Blood 4.1 g/dL (2.2-4.0); Glomerular Filtration Rate >60 (60-); Glucose, Blood 91 mg/dL (70-99); Potassium, Blood 3.8 mmol/L (3.5-5.5); Sodium, Blood 137 mmol/L (136-145); Total Protein, Blood 7.6 g/dL (6.4-8.2)
== END 2021-01-27 23:58 | disposition home or self-care (01) ==
LOC: ER 19:47
PROVIDERS: Physician Assistant
DX: L03.114 Cellulitis of left upper limb (principal); G40.909 Epilepsy, unspecified, not intractable, without status epilepticus; Z79.899 Other long term (current) drug therapy; Z53.20 Procedure and treatment not carried out because of patient's decision for unspecified reasons; Z88.5 Allergy status to narcotic agent; Z91.040 Latex allergy status; Z91.012 Allergy to eggs; Z88.2 Allergy status to sulfonamides; Z88.1 Allergy status to other antibiotic agents; Z88.8 Allergy status to other drugs, medicaments and biological substances; Z79.3 Long term (current) use of hormonal contraceptives
CPT/HCPCS: 36415; 80053; 85025; 99283

== ENCOUNTER → 2021-07-16 | Outpatient (CLI) | payer OTHER ==
[2021-07-16 17:56] LABS: U Amphetamine Screen Not Detected; U Benzodiazapine Screen DETECTED; U Cocaine Screen DETECTED; U Methamphetamine Screen DETECTED
[2021-07-16 17:57] LABS: U Barbituate Screen Not Detected; U Buprenorphine Screen DETECTED; U Cannabinoids Screen Not Detected; U Methadone Screen Not Detected; U Opiates Screen DETECTED; U Oxycodone Screen Not Detected; U Phencyclidine Screen Not Detected; U Propoxyphene Screen Not Detected
== END | disposition home or self-care (01) ==
LOC: LAB 10:00 → LAB SHORT 10:00
PROVIDERS: Family Medicine
DX: F11.10 Opioid abuse, uncomplicated (principal)

== ENCOUNTER → 2021-10-19 | Outpatient (CLI) | payer OTHER | END | disposition home or self-care (01) | LOC: LAB SHORT 14:22 | DX: R10.2 Pelvic and perineal pain (principal) | CPT/HCPCS: 87086 ==

== ENCOUNTER → 2022-01-04 | Outpatient (CLI) | payer OTHER | LOC: LAB SHORT 15:45 | DX: R30.9 Painful micturition, unspecified (principal) | CPT/HCPCS: 87086 ==

== ENCOUNTER 2022-03-08 06:49 | Day surgery (SDC) | payer OTHER ==
[~2022-03-08] VITALS: Ht 152.4 cm; Wt 67.1 kg
--- NOTE | 2022-03-08 07:30 | NUR ---
03/08/22 0730 Josi Johnson CALL LIGHT WITHIN REACH
--- NOTE | 2022-03-08 08:19 | NUR ---
03/08/22 0819 ANNETTE TEJADA 0.3MG OF EPI(1MG/1ML) ADDED TO 30MLS OF LIDO 1% TO CREATE A LOCAL SOLUTION OF LIDO 1% WITH EPI 1:100,000 10MLS OF LOCAL INJECTED INTO RHAND AT BEGINNING OF CASE BY HONEY SOLIS
--- NOTE | 2022-03-08 08:47 | NUR ---
03/08/22 0847 ESSIE CHEN SEE VSS FOR COMPLETE DETAILS
== END 2022-03-08 09:25 | disposition home or self-care (01) ==
LOC: ORSCSDS 06:49
PROVIDERS: Orthopaedic Surgery
PROC: 01N50ZZ Release Median Nerve, Open Approach (ICD-10-PCS; principal; 2022-03-08 08:00)
DX: G56.01 Carpal tunnel syndrome, right upper limb (principal); I10 Essential (primary) hypertension; R01.1 Cardiac murmur, unspecified; K21.9 Gastro-esophageal reflux disease without esophagitis; F41.9 Anxiety disorder, unspecified; G40.909 Epilepsy, unspecified, not intractable, without status epilepticus; J45.909 Unspecified asthma, uncomplicated; Z79.899 Other long term (current) drug therapy
CPT/HCPCS: A9270; J0171; J2250; J2704; J3010; J7120

== ENCOUNTER 2022-07-18 12:18 | Emergency (ER) | payer OTHER ==
[~2022-07-18] VITALS: Ht 152.4 cm; Wt 52.2 kg
[2022-07-18] MEDS ORDERED: OLANZAPINE5 M1 PO (13:00)
[2022-07-18] MEDS ORDERED: TIZANIDINE HCL213 PO (13:00)
[2022-07-18] MEDS ORDERED: LAMOTRIGINE100 M1 PO (13:00)
[2022-07-18] MEDS ORDERED: QUET300 PO (13:01)
[2022-07-18] MEDS ORDERED: Amoxicillin875 MG PO (13:06)
== END 2022-07-18 14:00 | disposition home or self-care (01) ==
LOC: ER 12:18
DX: L02.416 Cutaneous abscess of left lower limb (principal); F15.90 Other stimulant use, unspecified, uncomplicated; Z88.5 Allergy status to narcotic agent; Z88.1 Allergy status to other antibiotic agents; Z88.3 Allergy status to other anti-infective agents; Z91.012 Allergy to eggs; Z91.040 Latex allergy status; Z88.0 Allergy status to penicillin; Z88.2 Allergy status to sulfonamides; Z91.018 Allergy to other foods
CPT/HCPCS: 99283

== ENCOUNTER → 2022-07-29 | Outpatient (CLI) | payer OTHER ==
[~2022-07-29] MED LIST changes: +Amoxicillin875 MG PO; +LAMOTRIGINE100 M1 PO; +OLANZAPINE5 M1 PO; +QUET300 PO; +TIZANIDINE HCL213 PO
== END | disposition home or self-care (01) ==
LOC: LAB SHORT 12:10
DX: S81.802A Unspecified open wound, left lower leg, initial encounter (principal)
CPT/HCPCS: 87070; 87075; 87077; 87147; 87186; 87205